=== PATIENT | female | born 1985 | race Caucasian/White ===

== ENCOUNTER 2018-09-15 07:50 | Inpatient (IN) | payer OTHER ==
[~2018-09-15] VITALS: Ht 162.6 cm; Wt 79.8 kg
[2018-09-15] MEDS ORDERED: RINGERS SOLUTION,LACTATED 1,000 ML IV SCH (08:21)
[2018-09-15] MEDS ORDERED: RINGERS SOLUTION,LACTATED 1,000 ML IV PRN (08:21)
[2018-09-15] MEDS ORDERED: OXYTOCIN 30 UNITS/LACT RINGERS 500 ML IV ONE ×3 (08:21→11:55)
[2018-09-15] MEDS ORDERED: FentaNYL CITRATE-PF 100 MCG/2 ML VIAL IVP PRN (08:30)
[2018-09-15] MEDS ORDERED: METHYLERGONOVINE MALEATE 0.2 MG/ML VIAL IM PRN (08:30)
[2018-09-15] MEDS ORDERED: MINERAL OIL 30 ML UDCUP VG ONE (08:30)
[2018-09-15] MEDS ORDERED: CITRIC ACID/SODIUM CITRATE 30 ML SOLUTION UDCUP PO PRN (08:30)
[2018-09-15] MEDS ORDERED: LIDOCAINE/PF 1% 30 ML VIAL INJ PRN ×2 (08:30→12:00)
[2018-09-15] MEDS ORDERED: OXYGEN THERAPY IH SCH (08:30)
[2018-09-15] MEDS ORDERED: METOCLOPRAMIDE HCL 5 MG/ML 2 ML VIAL IVP PRN (08:30)
[2018-09-15 09:00] LABS: BASOPHILS % (AUTO) 0.6 % (0.0-2.0); EOSINOPHILS % (AUTO) 0.1 % (1.0-6.0); HEMATOCRIT 39.3 % (36-46); LYMPHOCYTES # (AUTO) 1.3 K/uL (1.0-4.8); MEAN CORPUSCULAR HEMOGLOBIN 29.1 pg (26.0-34.0); MEAN CORPUSCULAR VOLUME 88 fL (80-100); MONOCYTES # (AUTO) 0.5 K/uL (0.1-1.0); NEUTROPHILS # (AUTO) 9.9 K/uL (1.8-7.7); NEUTROPHILS % (AUTO) 84.3 % (40.0-70.0); PLATELET COUNT (AUTO) 182 K/uL (150-450); RED BLOOD CELL COUNT(AUTO) 4.47 MIL/uL (4.00-5.20); RED CELL DISTRIBUTION WIDTH 12.9 % (11.5-14.5)
[2018-09-15] MEDS ORDERED: ONDANSETRON HCL 4 MG/2 ML VIAL IVP PRN (09:00)
[2018-09-15] MEDS ORDERED: ROPIVACAINE HCL/PF 0.2% 100 ML ED PRN (09:00)
[2018-09-15] MEDS ORDERED: DiphenhydrAMINE HCL 50 MG/ML VIAL IVP PRN (09:00)
[2018-09-15 10:08] VITALS: BP 116/61
[2018-09-15] MEDS ORDERED: METHYLERGONOVINE MALEATE 0.2 MG/ML VIAL IM ONE (11:17)
[2018-09-15] MEDS ORDERED: ACETAMINOPHEN 325 MG TABLET ONE (11:22)
[2018-09-15] MEDS ORDERED: MISOPROSTOL 100 MCG TABLET ONE (11:22)
[2018-09-15] MEDS ORDERED: MEPERIDINE-PF 25 MG/ML VIAL ONE (11:22)
[2018-09-15] MEDS ORDERED: MEPERIDINE-PF 25 MG/ML VIAL IVP ONE ×2 (11:30→12:00)
[2018-09-15] MEDS ORDERED: ACETAMINOPHEN 325 MG TABLET PO ONE (12:00)
[2018-09-15] MEDS ORDERED: MAGNESIUM HYDROXIDE SUSPENSION 30 ML UDCUP PO PRN (12:00)
[2018-09-15] MEDS ORDERED: GLYCERIN/WITCH HAZEL LEAF 40 PADS JAR TP PRN (12:00)
[2018-09-15] MEDS ORDERED: MISOPROSTOL 100 MCG TABLET PO ONE (12:00)
[2018-09-15] MEDS ORDERED: OxyCODONE HCL/ACETAMINOPHEN 5-325 MG TABLET PO PRN ×2 (12:00)
[2018-09-15] MEDS ORDERED: BENZOCAINE 20%/MENTHOL 56 GM SPRAY CANISTER TP PRN (12:00)
[2018-09-15] MEDS ORDERED: LANOLIN 7 GM OINTMENT TP PRN (12:00)
[2018-09-16] MEDS: IBUPROFEN 800 MG TABLET PO PRN ×2 (00:46→12:08)
[2018-09-16 06:54] LABS: BASOPHILS % (AUTO) 0.3 % (0.0-2.0); EOSINOPHILS % (AUTO) 0.3 % (1.0-6.0); HEMATOCRIT 32.1 % (36-46); HEMOGLOBIN 10.7 g/dL (12.0-16.0); LYMPHOCYTES # (AUTO) 2.5 K/uL (1.0-4.8); LYMPHOCYTES % (AUTO) 19.6 % (22.0-44.0); MEAN CORPUSCULAR HEMOGLOBIN 29.7 pg (26.0-34.0); MEAN CORPUSCULAR HGB CONC 33.5 G/dL (31.0-37.0); MEAN CORPUSCULAR VOLUME 89 fL (80-100); MONOCYTES # (AUTO) 0.9 K/uL (0.1-1.0); MONOCYTES % (AUTO) 6.7 % (2.0-9.0); NEUTROPHILS # (AUTO) 9.3 K/uL (1.8-7.7); NEUTROPHILS % (AUTO) 73.1 % (40.0-70.0); PLATELET COUNT (AUTO)-OB 161 K/uL (150-450); RED BLOOD CELL COUNT(AUTO) 3.62 MIL/uL (4.00-5.20); RED CELL DISTRIBUTION WIDTH 13.2 % (11.5-14.5)
[2018-09-16] MEDS ORDERED: FERR-89 PO ×3 (09:32→09:40)
[2018-09-16] MEDS ORDERED: DSS100 PO ×3 (09:33→09:40)
[2018-09-16] MEDS ORDERED: IBUP-2071 PO (09:40)
== END 2018-09-16 12:25 | disposition home or self-care (01) | DRG 807 ==
LOC: OBSVTOIN 07:50 → 4S 07:50
PROVIDERS: ADMIT Obstetrics & Gynecology; ATTEND Obstetrics & Gynecology
PROC: 10E0XZZ Delivery of Products of Conception, External Approach (ICD-10-PCS; principal; 2018-09-15)
PROC: 0KQM0ZZ Repair Perineum Muscle, Open Approach (ICD-10-PCS; 2018-09-15)
PROC: 3E0R3BZ Introduction of Anesthetic Agent into Spinal Canal, Percutaneous Approach (ICD-10-PCS; 2018-09-15)
PROC: 00HU33Z Insertion of Infusion Device into Spinal Canal, Percutaneous Approach (ICD-10-PCS; 2018-09-15)
DX: O69.81X0 Labor and delivery complicated by cord around neck, without compression, not applicable or unspecified (principal); Z37.0 Single live birth; O70.1 Second degree perineal laceration during delivery; Z3A.40 40 weeks gestation of pregnancy
CPT/HCPCS: 86850; 86900; 86901; J2175; J2210; J2590; J2795; J7120